=== PATIENT | female | born 1980 | race African-American/Black ===

== ENCOUNTER 2017-03-25 16:34 | Emergency (ER) | payer OTHER ==
[2017-03-25 17:41] VITALS: BP 96/63
[2017-03-25 18:05] LABS: Basophils % (Auto) 0.8 % (0.0-1.8); Eosinophils % (Auto) 3.4 % (0.0-4.3); Hematocrit 41.8 % (30.3-42.9); Hemoglobin 14.2 gm/dl (10.1-14.3); Mean Corpuscular HGB Conc 34 % (30-34); Mean Corpuscular Hemoglobin 32 pg (28-32); Mean Corpuscular Volume 94 fl (79-97); Platelet Count 303 K/mm3 (140-440); Red Blood Count 4.44 M/mm3 (3.65-5.03); Red Cell Distribution Width 12.4 % (13.2-15.2); White Blood Count 8.2 K/mm3 (4.5-11.0)
[2017-03-25 19:30] LABS: Bilirubin,Urine NEG (Negative); Blood,Urine MOD (Negative); Ketones,Urine NEG (Negative); Leukocyte Esterase,Urine NEG (Negative); Nitrite,Urine NEG (Negative); Protein,Urine <15 mg/dL mg/dL (Negative); RBC,Urine < 1.0 /HPF (0.0-6.0); Urobilinogen,Urine < 2.0 mg/dL (<2.0); WBC,Urine < 1.0 /HPF (0.0-6.0)
--- NOTE | 2017-03-25 21:34 | Ultrasound Report ---
FINAL REPORT EXAM: US OB \T\lt; = 14 WEEKS FETUS HISTORY: vaginal bleeding with TECHNIQUE: Real-time sonography was performed of the gravid uterus transabdominally and endovaginally and images are submitted for interpretation. PRIORS: None. FINDINGS: The uterus has a small anterior myometrial fibroid measuring 0.9 cm. There is a grossly normal appearing intrauterine gestational sac. There is a normal appearing pole measuring 0.51 centimeters for an estimated gestational age of 6 weeks 2 days a normal-appearing yolk sac is identified. The heart is beating at a rate of 112 beats per minute. Both ovaries are visualized and appear normal. The right ovary measures 2.1 x 1.6 x 1.5 cm and the left measures 2.1 x 1.8 x 2.1 cm. IMPRESSION: Single live intrauterine gestation, estimated gestational age 6 weeks 2 days for an estimated date of confinement of 11/16/2017 Small anterior myometrial uterine fibroid.
--- NOTE | 2017-03-25 21:44 | Ultrasound Report ---
FINAL REPORT EXAM: US OB TRANSVAGINAL HISTORY: vaginal bleeding with TECHNIQUE: Real-time sonography was performed of the gravid uterus transabdominally and endovaginally and images are submitted for interpretation. PRIORS: None. FINDINGS: The uterus has a small anterior myometrial fibroid measuring 0.9 cm. There is a grossly normal appearing intrauterine gestational sac. There is a normal appearing pole measuring 0.51 centimeters for an estimated gestational age of 6 weeks 2 days a normal-appearing yolk sac is identified. The heart is beating at a rate of 112 beats per minute. Both ovaries are visualized and appear normal. The right ovary measures 2.1 x 1.6 x 1.5 cm and the left measures 2.1 x 1.8 x 2.1 cm. IMPRESSION: Single live intrauterine gestation, estimated gestational age 6 weeks 2 days for an estimated date of confinement of 11/16/2017 Small anterior myometrial uterine fibroid.
== END 2017-03-26 | disposition left against medical advice (07) ==
LOC: ED 16:34
DX: O20.9 Hemorrhage in early pregnancy, unspecified (principal); Z3A.01 Less than 8 weeks gestation of pregnancy
CPT/HCPCS: 36415; 76801; 76817; 81001; 84702; 85025; 86850; 86900; 86901

== ENCOUNTER 2017-03-27 17:35 | Emergency (ER) | payer OTHER ==
[2017-03-27 18:14] LABS: Basophils % (Auto) 0.7 % (0.0-1.8); Eosinophils % (Auto) 3.1 % (0.0-4.3); Hematocrit 39.4 % (30.3-42.9); Hemoglobin 13.6 gm/dl (10.1-14.3); Mean Corpuscular HGB Conc 35 % (30-34); Mean Corpuscular Hemoglobin 32 pg (28-32); Mean Corpuscular Volume 92 fl (79-97); Platelet Count 287 K/mm3 (140-440); Red Blood Count 4.27 M/mm3 (3.65-5.03); Red Cell Distribution Width 12.7 % (13.2-15.2); White Blood Count 6.3 K/mm3 (4.5-11.0)
[2017-03-27 18:38] LABS: Bilirubin,Urine NEG (Negative); Blood,Urine MOD (Negative); Ketones,Urine NEG (Negative); Leukocyte Esterase,Urine NEG (Negative); Nitrite,Urine NEG (Negative); Protein,Urine <15 mg/dL mg/dL (Negative); Urobilinogen,Urine < 2.0 mg/dL (<2.0); WBC,Urine < 1.0 /HPF (0.0-6.0)
--- NOTE | 2017-03-28 00:21 | Ultrasound Report ---
FINAL REPORT PROCEDURE: Ultrasound obstetrical transabdominal and transvaginal TECHNIQUE: Real-time transabdominal and transvaginal sonography of the uterus, placenta, amniotic fluid, adnexa, and fetus was performed with image documentation. Measurements were obtained to determine age/size. M-mode Doppler was used to document heartbeat. CPT 80849 and 70634 HISTORY: vaginal bleeding COMPARISON: 03/25/2017 FINDINGS: The uterus has a normal size. There is some thickening of the endometrium at 19 millimeters. No gestational sac is identified on this study. When compared to prior study the findings are most consistent with spontaneous . Both ovaries are normal. No fluid in the lower pelvis. Followup studies may be needed depending on the patient's clinical signs and symptomatology. IMPRESSION: The uterus has a normal appearance on today's study. The endometrial pattern is slightly thickened with no evidence of a gestational sac. When compared with prior study the findings are consistent with spontaneous . No retained products are identified on this study. The ovaries are normal. Followup studies may be indicated depending on the patient's clinical symptomatology and clinical progression.
--- NOTE | 2017-03-28 00:21 | Ultrasound Report ---
FINAL REPORT PROCEDURE: Ultrasound obstetrical transabdominal and transvaginal TECHNIQUE: Real-time transabdominal and transvaginal sonography of the uterus, placenta, amniotic fluid, adnexa, and fetus was performed with image documentation. Measurements were obtained to determine age/size. M-mode Doppler was used to document heartbeat. CPT 92926 and 65432 HISTORY: vaginal bleeding COMPARISON: 03/25/2017 FINDINGS: The uterus has a normal size. There is some thickening of the endometrium at 19 millimeters. No gestational sac is identified on this study. When compared to prior study the findings are most consistent with spontaneous . Both ovaries are normal. No fluid in the lower pelvis. Followup studies may be needed depending on the patient's clinical signs and symptomatology. IMPRESSION: The uterus has a normal appearance on today's study. The endometrial pattern is slightly thickened with no evidence of a gestational sac. When compared with prior study the findings are consistent with spontaneous . No retained products are identified on this study. The ovaries are normal. Followup studies may be indicated depending on the patient's clinical symptomatology and clinical progression.
--- NOTE | 2017-03-28 01:09 | Emergency Department Report ---
ED HPI - General Chief complaint: Vaginal Bleeding Stated complaint: VAGINAL BLEEDING Time Seen by Provider: 03/27/17 23:38 Source: patient, RN notes reviewed, old records reviewed Mode of arrival: Ambulatory Limitations: No Limitations - History of Present Illness Initial comments: This is a 36-year-old female, patient is previously unknown to me, she is 2, para 1. Patient seen in this department 2 days ago for vaginal bleeding, had an ultrasound at that time which demonstrated intrauterine . Presents to the ER with persistent vaginal bleeding and cramping. Denies headache, neck pain, chest pain, shortness of breath, irritative/ obstructive urinary symptoms. No recent trauma. 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 MD Complaint: vaginal bleeding -: Gradual Location: abdomen Consistency: intermittent Improves with: none Worsens with: none Associated symptoms: vaginal bleeding :: Yes OB History - Previous Pregnancies: no complications Pre- care: followed by OB - Related Data Allergies Allergy/AdvReac Type Severity Reaction Status Date / Time No Known Allergies Allergy Unverified 03/25/17 17:41 ED Review of Systems ROS: Stated complaint: VAGINAL BLEEDING Other details as noted in HPI Constitutional: denies: fever Eyes: denies: eye discharge ENT: denies: epistaxis Respiratory: denies: cough Cardiovascular: denies: chest pain Gastrointestinal: abdominal pain Genitourinary: abnormal menses Musculoskeletal: denies: back pain Skin: denies: lesions Neurological: denies: weakness Psychiatric: as per HPI, anxiety ED Past Medical Hx - Past Medical History Additional medical history: hep b - Surgical History Past Surgical History?: No - Social History Smoking Status: Never Smoker Substance Use Type: None ED Physical Exam - General Limitations: No Limitations General appearance: alert, in no apparent distress - Head Head exam: Present: atraumatic, normocephalic - Eye Eye exam: Present: normal appearance, EOMI. Absent: nystagmus - ENT ENT exam: Present: normal exam, normal orophraynx, mucous membranes moist, normal external ear exam - Neck Neck exam: Present: normal inspection, full ROM. Absent: tenderness, meningismus - Respiratory Respiratory exam: Present: normal lung sounds bilaterally. Absent: respiratory distress, wheezes, rales, rhonchi, stridor, chest wall tenderness - Cardiovascular Cardiovascular Exam: Present: regular rate, normal rhythm, normal heart sounds. Absent: bradycardia, tachycardia, irregular rhythm, systolic murmur, diastolic murmur, rubs, gallop - GI/Abdominal GI/Abdominal exam: Present: soft, normal bowel sounds. Absent: distended, tenderness, guarding, rebound, rigid, pulsatile mass - External exam: Present: normal external exam Speculum exam: Present: vaginal bleeding Bi-manual exam: Present: normal bi-manual exam, other (escorted by RN Roro Colung[place]). Absent: cervical motion tendernes, adnexal tenderness, adnexal mass - Extremities Exam Extremities exam: Present: normal inspection, full ROM, normal capillary refill. Absent: pedal edema, joint swelling, calf tenderness - Back Exam Back exam: Present: normal inspection, full ROM. Absent: tenderness, CVA tenderness (R), CVA tenderness (L), muscle spasm, paraspinal tenderness, vertebral tenderness - Neurological Exam Neurological exam: Present: alert, oriented X3, normal gait, other (Extraocular movements intact. Tongue midline. No facial droop. Facial sensation intact to light touch in the V1, V2, V3 distribution bilaterally. 5 and 5 strength in 4 extremities.. Sensation is intact to light touch in 4 extremities.). Absent : motor sensory deficit - Psychiatric Psychiatric exam: Present: anxious - Skin Skin exam: Present: warm, dry, intact, normal color. Absent: rash ED Course Vital Signs 03/27/17 17:55 Temperature 98.2 F Pulse Rate 65 Respiratory 16 Rate Blood Pressure 104/55 O2 Sat by Pulse 100 Oximetry ED Medical Decision Making - Lab Data Result diagrams: 03/27/17 18:00 Vital Signs 03/27/17 17:55 Temperature 98.2 F Pulse Rate 65 Respiratory 16 Rate Blood Pressure 104/55 O2 Sat by Pulse 100 Oximetry Lab Results 03/27/17 03/27/17 03/27/17 Range/Units 18:00 18:00 18:00 WBC 6.3 (4.5-11.0) K/mm3 RBC 4.27 (3.65-5.03) M/mm3 Hgb 13.6 (10.1-14.3) gm/dl Hct 39.4 (30.3-42.9) % MCV 92 (79-97) fl MCH 32 (28-32) pg MCHC 35 H (30-34) % RDW 12.7 L (13.2-15.2) % Plt Count 287 (140-440) K/mm3 Lymph % (Auto) 30.7 (13.4-35.0) % [place] % (Auto) 4.9 (0.0-7.3) % Eos % (Auto) 3.1 (0.0-4.3) % Baso % (Auto) 0.7 (0.0-1.8) % Lymph # 1.9 (1.2-5.4) K/mm3 [place] # 0.3 (0.0-0.8) K/mm3 Eos # 0.2 (0.0-0.4) K/mm3 Baso # 0.0 (0.0-0.1) K/mm3 Seg Neutrophils % 60.6 (40.0-70.0) % Seg Neutrophils # 3.8 (1.8-7.7) K/mm3 HCG, Quant 6606 H (0-4) mIU/mL Urine Color (Yellow) Urine Turbidity (Clear) Urine pH (5.0-7.0) Ur Specific [place] (1.003-1.030) Urine Protein (Negative) mg/dL Urine Glucose (UA) (Negative) mg/dL Urine Ketones (Negative) mg/dL Urine Blood (Negative) Urine Nitrite (Negative) Urine Bilirubin (Negative) Urine Urobilinogen (<2.0) mg/dL Ur Leukocyte Esterase (Negative) Urine WBC (Auto) (0.0-6.0) /HPF Urine RBC (Auto) (0.0-6.0) /HPF U Epithel Cells (Auto) (0-13.0) /HPF Blood Type A POSITIVE Antibody Screen Negative 03/27/17 Range/Units 18:12 WBC (4.5-11.0) K/mm3 RBC (3.65-5.03) M/mm3 Hgb (10.1-14.3) gm/dl Hct (30.3-42.9) % MCV (79-97) fl MCH (28-32) pg MCHC (30-34) % RDW (13.2-15.2) % Plt Count (140-440) K/mm3 Lymph % (Auto) (13.4-35.0) % [place] % (Auto) (0.0-7.3) % Eos % (Auto) (0.0-4.3) % Baso % (Auto) (0.0-1.8) % Lymph # (1.2-5.4) K/mm3 [place] # (0.0-0.8) K/mm3 Eos # (0.0-0.4) K/mm3 Baso # (0.0-0.1) K/mm3 Seg Neutrophils % (40.0-70.0) % Seg Neutrophils # (1.8-7.7) K/mm3 HCG, Quant (0-4) mIU/mL Urine Color Straw (Yellow) Urine Turbidity Clear (Clear) Urine pH 6.0 (5.0-7.0) Ur Specific [place] 1.005 (1.003-1.030) Urine Protein <15 mg/dl (Negative) mg/dL Urine Glucose (UA) Neg (Negative) mg/dL Urine Ketones Neg (Negative) mg/dL Urine Blood Mod (Negative) Urine Nitrite Neg (Negative) Urine Bilirubin Neg (Negative) Urine Urobilinogen < 2.0 (<2.0) mg/dL Ur Leukocyte Esterase Neg (Negative) Urine WBC (Auto) < 1.0 (0.0-6.0) /HPF Urine RBC (Auto) 2.0 (0.0-6.0) /HPF U Epithel Cells (Auto) < 1.0 (0-13.0) /HPF Blood Type Antibody Screen - Radiology Data Radiology results: report reviewed, image reviewed Obstetrics ultrasound demonstrates no intrauterine . Ultrasound from 2 days ago demonstrated intrauterine . These findings are consistent with spontaneous . No retained products of conception noted. - Medical Decision Making Differential diagnosis: Miscarriage Assessment and plan: 36-year-old female who 2 days ago had a sonographically confirmed intrauterine , today there is no intrauterine . The findings are consistent with spontaneous miscarriage. The patient is afebrile, with reassuring vital signs and tolerating liquid feeds, and she is Rh +. 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 Critical care attestation.: If time is entered above; I have spent that time in minutes in the direct care of this critically ill patient, excluding procedure time. ED Disposition Clinical Impression: Miscarriage Disposition: [id number] TO HOME OR SELFCARE Is pt being admited?: No Does the pt Need Aspirin: No Condition: Stable Instructions: Spontaneous Miscarriage (ED) Additional Instructions: The patient is given a copy of her laboratory studies and ultrasound report. Rest and avoid heavy lifting. Avoid strenuous physical activity. Follow-up with an [facility] doctor within the next 7-10 days. Do not engage in sexual intercourse until cleared by a private [facility] doctor. Findings are consistent with spontaneous miscarriage. Take acetaminophen every 4 hours, alternating with ibuprofen every 6 hours. Return to the ER right away with new pain, worsened pain, migration of pain, fevers, chills, lethargy, irritability, projectile vomiting, change in mental status. Referrals: PRIMARY CARE, [Primary Care Provider] - 3-5 Days [facility] [Provider Group] - 3-5 Days [facility] [Provider Group] - 3-5 Days [facility] [Provider Group] - 3-5 Days
[2017-03-28 01:35] VITALS: BP 110/64
== END 2017-03-28 01:30 | disposition home or self-care (01) ==
LOC: ED 17:35
DX: O03.9 Complete or unspecified spontaneous abortion without complication (principal); Z3A.00 Weeks of gestation of pregnancy not specified
CPT/HCPCS: 36415; 76801; 76817; 81001; 84702; 85025; 86850; 86900; 86901